=== PATIENT | male | born 1995 | race Caucasian/White ===

== ENCOUNTER 2021-05-06 15:02 | Emergency (ER) | payer OTHER, SELFPAY ==
[2021-05-06] VITALS (10 sets, daily range): BP systolic 80–137; BP diastolic 47–98; PULSE 60–95; RESP 12–20; TEMP 36.7; O2SAT 96–100
--- NOTE | 2021-05-06 15:19 | DI.RAD.S_ITS ---
PROCEDURE: XR CHEST 1V INDICATIONS: chest pain TECHNIQUE: One view of the chest was acquired. COMPARISON: None. FINDINGS: Surgical changes and devices: None. Lungs and pleura: Lungs are clear. No pleural effusions or pneumothorax. Mediastinum: Mediastinal contours appear normal. Heart size is normal. Bones and chest wall: No suspicious bony lesions. Overlying soft tissues appear unremarkable. IMPRESSION: No acute disease. Dictated by: Stephon Christianson M.D. on 05/06/2021 at 15:43 Approved by: Stephon Christianson M.D. on 05/06/2021 at 15:43
[2021-05-06 15:39] LABS: Add Manual Diff / Slide Review NO; Basophils Absolute Auto 100 /uL (0-100); Basophils Percent Auto 1.2 % (0-2); Eosinophils Absolute Auto 100 /uL (0-450); Eosinophils Percent Auto 1.1 % (2-4); Hemoglobin 15.7 g/dL (13.5-17.5); Lymphocytes Absolute Auto 2700 /uL (1100-4500); Lymphocytes Percent Auto 47.6 % (25-40); Mean Corpuscular HGB Conc 34.8 % (30-36); Mean Corpuscular Volume 89.1 fL (80-100); Monocytes Absolute Auto 500 /uL (0-900); Monocytes Percent Auto 9.1 % (3-14); Neutrophils Absolute Auto 2400 /uL (1500-7000); Platelet Count 286 X10^3/uL (150-400); Red Blood Cell Count 5.05 X10^6/uL (4.5-5.9); Red Cell Distribution Width 12.4 % (11.6-14.8); White Blood Cell Count 5.8 X10^3/uL (4.5-11.0)
--- NOTE | 2021-05-06 15:45 | PC.NURSE ---
pt reports he feels his heart beating fast. a tight feeling since he had his covid vaccine 2 weeks ago.
[2021-05-06 15:52] LABS: Alanine Aminotransferase 22 IU/L (<50); Albumin 4.7 g/dL (3.5-5.0); Albumin Globulin Ratio 1.5 (1.0-2.8); Alkaline Phosphatase 84 U/L (38-126); Aspartate Aminotransferase 14 IU/L (17-59); Bilirubin Total 0.4 mg/dL (0.2-1.3); Blood Urea Nitrogen 12 mg/dL (9-20); Carbon Dioxide 30 mmol/L (22-32); Chloride 105 mmol/L (98-107); Creatine Kinase 55 U/L (55-170); Estimated Glomerular Filt Rate > 60.0 mL/min (>60); Globulin 3.1 g/dL (1.7-4.1); Glucose 89 mg/dL (70-100); HEMOLYSIS < 15 (0-50); Lipase 35 U/L (23-300); Potassium 3.9 mmol/L (3.4-5.1); Sodium 142 mmol/L (137-145); Total Protein 7.8 g/dL (6.3-8.2)
[2021-05-06] MEDS: SODIUM CHLORIDE 0.9% 1,000 ML 1000 ML IV (15:54)
--- NOTE | 2021-05-06 16:13 | ED.ARRPALP ---
HPI - Arrhythmia/Palpitations General Chief Complaint: Arrhythmia/Palpitations Stated Complaint: heart palpitations for 2 weeks post 2nd covid shot Time Seen by Provider: 05/06/21 15:07 Source: patient Mode of arrival: Ambulatory Limitations: no limitations History of Present Illness HPI narrative: 25-year-old male nonsmoker with noncontributory medical history presents with a chief complaint of palpitations over the past few days. He denies other symptoms such as dizziness, weakness or lightheadedness. He has no chest pain or shortness of breath. She denies any recent injury or travel. A few weeks ago he had a COVID shot in the aftermath developed some sharp and stabbing anterior chest pain. He presented to an outside facility and based on our discussion sounds like he was diagnosed with pericarditis. He had been on anti-inflammatories for about a week and no symptoms had resolved but then over the past 7 days he has had increasing frequency of palpitations. He denies any dietary change. He has no significant caffeine, nicotine or alcohol. He is not currently having any symptoms. Related Data Allergies Allergy/AdvReac Type Severity Reaction Status Date / Time No Known Drug Allergies Allergy Verified 05/06/21 15:11 Review of Systems Review of Systems Narrative: GENERAL: Denies chills, fatigue, malaise, fever, sweats. HEENT: Denies sinus pain, ear pain, sore throat, difficulty swallowing, dizziness. RESPIRATORY: Denies dyspnea, cough, wheezing, hemoptysis, sputum. CARDIOVASCULAR: See HPI, GASTROINTESTINAL: Denies nausea, vomiting, abdominal pain, diarrhea, constipation, melena. : Denies dysuria, frequency, incontinence, hematuria, urinary retention. MUSCULOSKELETAL: denies weakness, joint pain, or bony pain SKIN: Denies rash, skin lesions, or other NEUROLOGIC: Denies weakness, headache, numbness, change in speech, confusion, seizures, incoordination. PSYCHIATRIC: No concerning psychosocial issues. 12 point review of systems is negative except for those stated above Patient History Social History Smoking Status: Unknown if ever smoked Smoking Status: Unknown if ever smoked alcohol intake frequency: holidays/special occasions only Substance Use Type: does not use Exam Narrative Exam Narrative: GENERAL: [25 year old patient appears stated age. Well-developed patient, in mild distress. HEAD: Atraumatic. Normocephalic. EYES: Pupils equal round and reactive. Extraocular motions intact. No scleral icterus. No injection or drainage. ENT: Nose without bleeding, purulent drainage. Throat without erythema, tonsillar hypertrophy or exudate. Airway patent. NECK: Trachea midline. Non tender CARDIOVASCULAR: Regular rate and rhythm without murmurs, gallops, or rubs. RESPIRATORY: Clear to auscultation. Breath sounds equal bilaterally. No wheezes, rales, or rhonchi. GASTROINTESTINAL: Abdomen soft, non-tender, nondistended. EXTREMITIES: No edema or joint tenderness. BACK: Nontender without deformity or crepitance. No flank tenderness. NEURO: AOx3. SKIN: No rash or erythema of visible areas Initial Vital Signs Initial Vital Signs: Vital Signs Pulse Rate 95 H 05/06/21 15:08 Pulse Oximetry 96 05/06/21 15:08 Course Orders Ordered: ED Orders 05/06/21 15:11 EKG-12 Lead Stat 05/06/21 15:19 XR chest 1V Stat 05/06/21 15:28 C-Reactive Protein Quant Stat Complete Blood Count AUTO DIFF Stat Comprehensive Metabolic Panel Stat Erythrocyte Sedimentation Rate Stat Lipase Stat Troponin & CK Cardiac Panel Stat 05/06/21 16:50 D Dimer Stat Sodium Chloride (Normal Saline 0.9%) 1,000 mls @ 1,000 mls/hr IV BOLUS ONE Stop: 05/06/21 16:43 Last Admin: 05/06/21 15:54 Dose: 1,000 mls/hr Documented by: FELISA Vital Signs Vital signs: Vital Signs - 8 hr 05/06/21 15:08 05/06/21 15:09 05/06/21 15:11 Temperature 98.1 F Pulse Rate 95 H 89 90 Respiratory Rate 17 14 Blood Pressure 137/98 H 137/98 H Pulse Oximetry 96 98 97 05/06/21 15:30 05/06/21 15:32 05/06/21 15:33 Temperature Pulse Rate 65 60 66 Respiratory Rate 16 16 17 Blood Pressure 80/53 L 85/47 L 98/55 L Pulse Oximetry 100 100 100 05/06/21 15:41 05/06/21 15:53 05/06/21 16:00 Temperature Pulse Rate 71 66 82 Respiratory Rate 12 14 20 Blood Pressure 102/65 118/82 127/85 Pulse Oximetry 100 100 100 05/06/21 16:30 Temperature Pulse Rate 82 Respiratory Rate 12 Blood Pressure 117/71 Pulse Oximetry 100 MDM - Arrhythmia/Palpitations Lab Data Result diagrams: 05/06/21 15:28 05/06/21 15:28 Labs: Lab Results 05/06/21 05/06/21 05/06/21 Range/Units 15:28 15:28 15:28 WBC 5.8 (4.5-11.0) X10^3/uL RBC 5.05 (4.5-5.9) X10^6/uL Hgb 15.7 (13.5-17.5) g/dL Hct 45.0 (41-53) % MCV 89.1 (80-100) fL MCH 31.0 (26-34) PG MCHC 34.8 (30-36) % RDW 12.4 (11.6-14.8) % Plt Count 286 (150-400) X10^3/uL Neut % (Auto) 41.0 L (50-75) % Lymph % (Auto) 47.6 H (25-40) % [place] % (Auto) 9.1 (3-14) % Eos % (Auto) 1.1 L (2-4) % Baso % (Auto) 1.2 (0-2) % Neut # (Auto) 2400 (3388-6237) /uL Lymph # (Auto) 2700 (4219-7228) /uL [place] # (Auto) 500 (0-900) /uL Eos # (Auto) 100 (0-450) /uL Baso # (Auto) 100 (0-100) /uL D-Dimer (<230) ng/mL Sodium 142 (137-145) mmol/L Potassium 3.9 (3.4-5.1) mmol/L Chloride 105 (98-107) mmol/L Carbon Dioxide 30 (22-32) mmol/L BUN 12 (9-20) mg/dL Creatinine 0.63 L (0.66-1.25) mg/dL Estimated GFR > 60.0 (>60) mL/min BUN/Creatinine Ratio 19.0 (6-22) Glucose 89 (70-100) mg/dL Calcium 10.0 (8.4-10.2) mg/dL Total Bilirubin 0.4 (0.2-1.3) mg/dL AST 14 L (17-59) IU/L ALT 22 (<50) IU/L Alkaline Phosphatase 84 (38-126) U/L Total Creatine Kinase 55 (55-170) U/L CK-MB (CK-2) TNP CK-MB (CK-2) Rel Index TNP C-Reactive Protein < 0.5 (<1.0) mg/dL Total Protein 7.8 (6.3-8.2) g/dL Albumin 4.7 (3.5-5.0) g/dL Globulin 3.1 (1.7-4.1) g/dL Albumin/Globulin Ratio 1.5 (1.0-2.8) Lipase 35 (23-300) U/L 05/06/21 Range/Units 16:50 WBC (4.5-11.0) X10^3/uL RBC (4.5-5.9) X10^6/uL Hgb (13.5-17.5) g/dL Hct (41-53) % MCV (80-100) fL MCH (26-34) PG MCHC (30-36) % RDW (11.6-14.8) % Plt Count (150-400) X10^3/uL Neut % (Auto) (50-75) % Lymph % (Auto) (25-40) % [place] % (Auto) (3-14) % Eos % (Auto) (2-4) % Baso % (Auto) (0-2) % Neut # (Auto) (5712-3132) /uL Lymph # (Auto) (0808-0564) /uL [place] # (Auto) (0-900) /uL Eos # (Auto) (0-450) /uL Baso # (Auto) (0-100) /uL D-Dimer < 200 (<230) ng/mL Sodium (137-145) mmol/L Potassium (3.4-5.1) mmol/L Chloride (98-107) mmol/L Carbon Dioxide (22-32) mmol/L BUN (9-20) mg/dL Creatinine (0.66-1.25) mg/dL Estimated GFR (>60) mL/min BUN/Creatinine Ratio (6-22) Glucose (70-100) mg/dL Calcium (8.4-10.2) mg/dL Total Bilirubin (0.2-1.3) mg/dL AST (17-59) IU/L ALT (<50) IU/L Alkaline Phosphatase (38-126) U/L Total Creatine Kinase (55-170) U/L CK-MB (CK-2) CK-MB (CK-2) Rel Index C-Reactive Protein (<1.0) mg/dL Total Protein (6.3-8.2) g/dL Albumin (3.5-5.0) g/dL Globulin (1.7-4.1) g/dL Albumin/Globulin Ratio (1.0-2.8) Lipase (23-300) U/L ECG Data Interpretation: EKG is sinus bradycardia with rate 56, normal rhythm and free of any signs of ischemia or ectopy. No ST segmental elevation or depression. No T wave inversions Discharge Plan Departure Patient Disposition: Home Clinical Impression: Palpitations Instructions: DI for Arrhythmias Activity Restrictions/Additional Instructions: *You have been diagnosed with [palpitations, likely pre atrial contractions. Your EKG, lab work and physical exam are very reassuring *What to do: *Please continue to take your regular medications as directed. [ ] New medication prescriptions sent to your pharmacy: [ ] [ ] New medication written as a paper prescription [ x] No new medications given *Please follow up with your primary care provider in 2-3 days, call for an appointment. Let them know you were seen in the Emergency Department and that we ask that you be seen in follow up. We will electronically transmit a record of today's note if your PCP is in our system *If you do not have a primary care provider please contact the [facility] Resource line at [phone]. They will ask some questions about your medical history and help get you set up with a doctor in the community. *Return to Emergency Department if you should have any new, worsening or concerning symptoms, such as [fever greater than 101 F, shaking chills, worsening pain, persistent vomiting or other bothersome symptoms]
[2021-05-06 16:31] LABS: C-Reactive Protein Quant < 0.5 mg/dL (<1.0)
[2021-05-06 16:31] LABS: D Dimer < 200 ng/mL (<230)
[2021-05-06 16:50] LABS: Troponin I < 0.012 ng/mL (0.01-0.034)
[2021-05-06 16:52] LABS: Erythrocyte Sedimentation Rate 2 MM/HR (0-15)
== END 2021-05-06 16:52 | disposition home or self-care (01) ==
PROVIDERS: Emergency Provider Emergency Medicine
DX: R00.2 Palpitations (principal); R00.1 Bradycardia, unspecified
CPT/HCPCS: 36415; 71045; 80053; 82550; 83690; 84484; 85025; 85379; 85651; 86140; 93005; 96360; 99284

== ENCOUNTER 2021-05-10 16:53 | Emergency (ER) | payer OTHER, SELFPAY ==
[2021-05-10 16:59] VITALS: BP 129/84; PULSE 105; RESP 24; TEMP 36.6; O2SAT 100
--- NOTE | 2021-05-10 17:11 | DI.RAD.S_ITS ---
PROCEDURE: XR CHEST 1V INDICATIONS: chest pain TECHNIQUE: One view of the chest was acquired. COMPARISON: [facility], CR, XR CHEST 1V, 05/06/2021, 15:32. FINDINGS: Surgical changes and devices: None. Lungs and pleura: Lungs are clear. No pleural effusions or pneumothorax. Mediastinum: Mediastinal contours appear normal. Heart size is normal. Bones and chest wall: No suspicious bony lesions. Overlying soft tissues appear unremarkable. IMPRESSION: No acute cardiopulmonary findings Approved by: Sylvain Zheng M.D. on 05/10/2021 at 17:14
[2021-05-10 17:31] LABS: Add Manual Diff / Slide Review NO; Basophils Absolute Auto 100 /uL (0-100); Basophils Percent Auto 1.2 % (0-2); Eosinophils Absolute Auto 100 /uL (0-450); Eosinophils Percent Auto 0.8 % (2-4); Hematocrit 44.8 % (41-53); Hemoglobin 15.5 g/dL (13.5-17.5); Lymphocytes Absolute Auto 3300 /uL (1100-4500); Lymphocytes Percent Auto 38.2 % (25-40); Mean Corpuscular HGB Conc 34.7 % (30-36); Mean Corpuscular Hemoglobin 30.9 PG (26-34); Mean Corpuscular Volume 88.9 fL (80-100); Monocytes Absolute Auto 500 /uL (0-900); Monocytes Percent Auto 5.9 % (3-14); Neutrophils Absolute Auto 4600 /uL (1500-7000); Neutrophils Percent Auto 53.9 % (50-75); Platelet Count 294 X10^3/uL (150-400); Red Blood Cell Count 5.04 X10^6/uL (4.5-5.9); Red Cell Distribution Width 12.5 % (11.6-14.8); White Blood Cell Count 8.6 X10^3/uL (4.5-11.0)
[2021-05-10 17:35] LABS: Alanine Aminotransferase 21 IU/L (<50); Albumin 4.8 g/dL (3.5-5.0); Albumin Globulin Ratio 1.6 (1.0-2.8); Alkaline Phosphatase 79 U/L (38-126); Aspartate Aminotransferase 19 IU/L (17-59); BUN Creatinine Ratio 25.7 (6-22); Bilirubin Total 0.6 mg/dL (0.2-1.3); Blood Urea Nitrogen 18 mg/dL (9-20); Calcium 9.7 mg/dL (8.4-10.2); Carbon Dioxide 27 mmol/L (22-32); Chloride 102 mmol/L (98-107); Creatine Kinase 77 U/L (55-170); Estimated Glomerular Filt Rate > 60.0 mL/min (>60); Glucose 87 mg/dL (70-100); HEMOLYSIS 24 (0-50); Lipase 29 U/L (23-300); Potassium 3.8 mmol/L (3.4-5.1); Sodium 139 mmol/L (137-145); Total Protein 7.8 g/dL (6.3-8.2)
[2021-05-10 17:43] LABS: Troponin I < 0.012 ng/mL (0.01-0.034)
--- NOTE | 2021-05-10 21:14 | ED_ITS ---
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 Patient states he developed symptoms after his 2nd COVID vaccination. His 1st was 04/02/2021 and his 2nd was 04/23/2021. Patient states he has had sensation of substernal chest pain that has been intermittent. He denies any radiation elsewhere. No syncope. He denies any shortness of breath. He has not any episodes fevers. Denies nausea or vomiting. No diaphoresis. Attached patient denies any swelling in his extremities. No issues with bowel movements or urination. Today's episode seemed to be exacerbated when he was lifting a wheeled to be painted at work. He states the pain see more specific to that substernal location and his heart felt like it rolled over. He has noted he has had some intermittent palpitations sensations at time. He denies any other past medical issues. Dose medications. No surgeries. No allergies to medications. No tobacco, 3-5 alcoholic drinks on the weekends, no THC or other illicit. Family history of hypertension with no other cardiac, embolic or pulmonary history known. Patient is in the [employer]. He was seen after his prior visit and they are arranging a Holter or similar monitor. Related Data Allergies Allergy/AdvReac Type Severity Reaction Status Date / Time No Known Drug Allergies Allergy Verified 05/10/21 21:22 Review of Systems Review of Systems ROS Unobtainable: All systems reviewed & are unremarkable except as noted in HPI and below Patient History Social History Smoking Status: Unknown if ever smoked Smoking Status: Unknown if ever smoked alcohol intake frequency: holidays/special occasions only Substance Use Type: does not use Exam Narrative Exam Narrative: GENERAL: Alert and oriented x three, thin male in no acute distress. HEENT: Head normocephalic, atraumatic, EOMI, pupils reactive, face symmetric, moist mucous membranes NECK: Supple, full range of motion CARDIOVASCULAR: Regular rate and rhythm without murmurs, rubs or gallops. No JVD. RESPIRATORY: Breath sounds equal bilaterally, no wheezes rales or rhonchi. No tachypnea accessory muscle use. ABDOMEN: Soft, nontender. Normoactive bowel sounds all 4 quadrants. No guarding or rebound, rigidity, no mass : No CVA tenderness EXTREMITIES: Normal range of motion, no edema. Neurovascularly intact NEUROLOGICAL: Cranial nerves II through XII grossly intact. Moving all extremities. Normal gait. SKIN: Warm, dry, no petechiae, no rashes or lesions. Initial Vital Signs Initial Vital Signs: Vital Signs Temperature 97.8 F 05/10/21 16:59 Pulse Rate 105 H 05/10/21 16:59 Respiratory Rate 24 05/10/21 16:59 Blood Pressure 129/84 05/10/21 16:59 Pulse Oximetry 100 05/10/21 16:59 Course Orders Ordered: ED Orders 05/10/21 17:10 Complete Blood Count AUTO DIFF Stat Comprehensive Metabolic Panel Stat Lipase Stat Troponin & CK Cardiac Panel Stat 05/10/21 17:11 XR chest 1V Stat 05/10/21 18:09 EKG-12 Lead Routine Vital Signs Vital signs: Vital Signs - 8 hr 05/10/21 21:53 Pulse Rate 92 H Respiratory Rate 16 Blood Pressure 125/82 Pulse Oximetry 99 MDM - Chest Pain Lab Data Result diagrams: 05/10/21 17:10 05/10/21 17:10 Labs: Lab Results 05/10/21 05/10/21 Range/Units 17:10 17:10 WBC 8.6 (4.5-11.0) X10^3/uL RBC 5.04 (4.5-5.9) X10^6/uL Hgb 15.5 (13.5-17.5) g/dL Hct 44.8 (41-53) % MCV 88.9 (80-100) fL MCH 30.9 (26-34) PG MCHC 34.7 (30-36) % RDW 12.5 (11.6-14.8) % Plt Count 294 (150-400) X10^3/uL Neut % (Auto) 53.9 (50-75) % Lymph % (Auto) 38.2 (25-40) % [place] % (Auto) 5.9 (3-14) % Eos % (Auto) 0.8 L (2-4) % Baso % (Auto) 1.2 (0-2) % Neut # (Auto) 4600 (1079-8111) /uL Lymph # (Auto) 3300 (6006-0234) /uL [place] # (Auto) 500 (0-900) /uL Eos # (Auto) 100 (0-450) /uL Baso # (Auto) 100 (0-100) /uL Sodium 139 (137-145) mmol/L Potassium 3.8 (3.4-5.1) mmol/L Chloride 102 (98-107) mmol/L Carbon Dioxide 27 (22-32) mmol/L BUN 18 (9-20) mg/dL Creatinine 0.70 (0.66-1.25) mg/dL Estimated GFR > 60.0 (>60) mL/min BUN/Creatinine Ratio 25.7 H (6-22) Glucose 87 (70-100) mg/dL Calcium 9.7 (8.4-10.2) mg/dL Total Bilirubin 0.6 (0.2-1.3) mg/dL AST 19 (17-59) IU/L ALT 21 (<50) IU/L Alkaline Phosphatase 79 (38-126) U/L Total Creatine Kinase 77 (55-170) U/L CK-MB (CK-2) TNP CK-MB (CK-2) Rel Index TNP Troponin I < 0.012 (0.01-0.034) ng/mL Total Protein 7.8 (6.3-8.2) g/dL Albumin 4.8 (3.5-5.0) g/dL Globulin 3.0 (1.7-4.1) g/dL Albumin/Globulin Ratio 1.6 (1.0-2.8) Lipase 29 (23-300) U/L Imaging Data Chest x-ray: Radiologist's Impression: [address] [address] XRay Report Signed Patient: Sudheer Hale MR#: [id number] : 1995 Acct:[id number] Age/Sex: 25 / M Date of Service: 05/10/21 Loc: ED Accession Number: [id number] ?? Procedure: XR chest 1V Ordering Provider: Linh Biswas D.O. PROCEDURE:? XR CHEST 1V ? INDICATIONS:? chest pain ? TECHNIQUE:? One view of the chest was acquired.? ? COMPARISON:? [facility], CR, XR CHEST 1V, 05/06/2021, 15:32. ? FINDINGS:? ? Surgical changes and devices:? None.? ? Lungs and pleura:? Lungs are clear.? No pleural effusions or pneumothorax.? ? Mediastinum:? Mediastinal contours appear normal.? Heart size is normal.? ? Bones and chest wall:? No suspicious bony lesions.? Overlying soft tissues appear unremarkable.? ? IMPRESSION:? No acute cardiopulmonary findings ? ? ? Approved by: Sylvain Zheng M.D. on 05/10/2021 at 17:14? ECG Data Attestation: I personally reviewed and interpreted this ECG as follows: Prior ECG tracings: available for review Interpretation: Sinus rhythm with sinus arrhythmia, rate 89 LA 136 QRS 86 and QTC of 403. Patient has T-wave bleed inversion in 3. No other ST elevation depression appreciated. Patient has EKG from 05/06/2021 With no acute changes appreciated. MDM Narrative Medical decision making narrative: Is a 25-year-old male who is chest pain that occurred while lifting a removal we will. Patient's was seen several days ago. He has no acute EKG changes, negative chest x-ray and no acute lab changes. He was evaluated including D-dimer several days ago. His vitals here are reassuring. He is concerned this may be related to his recent COVID vaccinations. Unclear if this is true causal link. He has been seen by the physicians at the [employer] and is already having a Holter monitor arranged. At this time patient seems appropriate for discharge home. He was given a copy of his labs, EKG and imaging findings from today. Discharge Plan Departure Patient Disposition: Home Clinical Impression: Atypical chest pain Instructions: DI for Atypical Chest Pain Activity Restrictions/Additional Instructions: Follow up with your physician this week. It sounds appropriate that they have ordered you have a heart monitor that you can wear at home to check her heart rhythms. Your labs, imaging EKG today do not show any acute changes. Please return for fevers, new or worsening symptoms, passing out, new shortness of breath, persistent vomiting, new swelling in her extremities, new rashes or skin changes or other new or concerning symptoms.
[2021-05-10 21:53] VITALS: BP 125/82; PULSE 92; RESP 16; O2SAT 99
== END 2021-05-10 21:53 | disposition home or self-care (01) ==
PROVIDERS: Emergency Medicine; Emergency Provider Emergency Medicine
DX: R07.89 Other chest pain (principal); R00.2 Palpitations
CPT/HCPCS: 36415; 71045; 80053; 82550; 83690; 84484; 85025; 93005; 99283; 99284